=== PATIENT | male | born 1995 | race African-American/Black ===

== ENCOUNTER 2018-02-08 15:27 | Emergency (ER) | payer OTHER, SELFPAY ==
[2018-02-08 15:37] VITALS: BP 127/86; PULSE 72; RESP 14; TEMP 36.8; O2SAT 98; BMI 36.5
[2018-02-08 17:30] VITALS: BP 124/73; PULSE 58; RESP 16; O2SAT 98
--- NOTE | 2018-02-08 17:32 | ED.ABDPAIN ---
HPI - Abdominal Pain <RONAL Romano - Last Filed: 02/08/18 20:12> General Chief Complaint: Abdominal Pain Stated Complaint: Blood in stool, itchy/irritated/sore rectum Time Seen by Provider: 02/08/18 17:32 Source: patient Mode of arrival: ambulatory Limitations: no limitations History of Present Illness HPI narrative: 22-year-old healthy nonsmokier male here for complaint having pain to his left testicle area for the past couple of weeks. He denies any trauma to the area. He denies any penile discharge. He denies any urinary symptoms. He also complains having pain into his left ribcage/ left flank area also for the last couple weeks. He also states that he has had some blood-streaked stools and irritation to his rectal area for the same timeframe. He denies any abdominal pain. He denies any chest pain no shortness of breath. He states that he had a new sexual encounter approximately 3-4 weeks ago. No fevers no chills positive p.o. intake. He denies any trauma to the ribcage area. MD complaint: flank pain Related Data Previous Rx's Medication Instructions Recorded doxycycline hyclate 100 mg PO BID #14 tab 02/08/18 Allergies Allergy/AdvReac Type Severity Reaction Status Date / Time No Known Drug Allergies Allergy Verified 02/08/18 15:40 Review of Systems <RONAL Romano - Last Filed: 02/08/18 20:12> Constitutional Denies chills, Denies fever(s), Denies lethargy and Denies weakness Eyes Denies change in vision, Denies eye discharge, Denies irritation and Denies loss of vision ENT Ears, Nose, Mouth, and Throat: Denies change in voice, Denies neck pain and Denies sore throat Cardiovascular Denies chest pain, Denies irregular heart rhythm, Denies lightheadedness, Denies palpitations and Denies orthopnea Respiratory Comments: Left lateral ribcage pain Gastrointestinal Gastrointestinal: Denies abdominal pain, Denies change in bowel habits, Denies diarrhea, Denies nausea and Denies vomiting Genitourinary Denies hematuria, Denies flank pain, Denies urinary incontinence and Denies urinary urgency Musculoskeletal Denies neck pain Integumentary/Breasts Denies pruritus, Denies erythema, Denies rash and Denies wounds Neurologic Denies confusion, Denies loss of vision and Denies weakness Psychiatric Denies anxiety, Denies confusion, Denies depression, Denies homicidal ideation and Denies suicidal ideation Endocrine Denies palpitations Hematologic/Lymphatic Denies easy bruising Exam <RONAL Romano - Last Filed: 02/08/18 20:12> Initial Vital Signs Initial Vital Signs: Vital Signs Temperature 98.3 F 02/08/18 15:37 Pulse Rate 72 02/08/18 15:37 Respiratory Rate 14 02/08/18 15:37 Blood Pressure 127/86 02/08/18 15:37 Pulse Oximetry 98 02/08/18 15:37 Const General: cooperative and well developed Nutritional Appearance: well nourished Orientation: alert, awake, oriented x3 and not confused HENDC Mouth: oral mucosae normal and moist mucous membranes Eyes Conjunctivae: conjunctivae normal Sclera: sclerae normal Pupils: PERRL EOM: EOM intact bilaterally Chest Other: Tenderness with palpation to the left lateral ribcage Resp Effort & Inspection: normal respiratory effort, able to speak in complete sentences, no respiratory distress and no use of accessory muscles Auscultation: clear to auscultation bilaterally, no rales, no rhonchi and no wheezes Cardio Rate: regular rate Rhythm: regular rhythm Heart Sounds: no click, no gallops, no murmurs and no rubs Pulses: normal peripheral pulses GI Inspection: non-distended Palpation: soft, no hepatosplenomegaly, No guarding, No pulsatile mass and No tender Auscultation: normal bowel sounds General: No CVA tenderness Testes: normal, no epidiymal masses, epididymal tenderness, no masses, no testicular mass and testicular tenderness on the left Skin General: no rashes or lesions noted, No jaundice and No petechiae Neuro General: alert, oriented x3, gait normal and no focal motor deficits Speech: speech normal Extrem General: full ROM, no clubbing, cyanosis or edema, no pedal edema and no calf tenderness <Bart Alves DO - Last Filed: 02/09/18 05:43> Initial Vital Signs Initial Vital Signs: Vital Signs Temperature 98.3 F 02/08/18 15:37 Pulse Rate 72 02/08/18 15:37 Respiratory Rate 14 02/08/18 15:37 Blood Pressure 127/86 02/08/18 15:37 Pulse Oximetry 98 02/08/18 15:37 Course <RONAL Romano - Last Filed: 02/08/18 20:12> Orders Ordered: Discontinued Medications Ceftriaxone Sodium (Rocephin) 500 mg IM NOW ONE Stop: 02/08/18 19:44 Last Admin: 02/08/18 20:12 Dose: 500 mg Doxycycline Hyclate (Vibramycin) 100 mg PO NOW ONE Stop: 02/08/18 19:44 Last Admin: 02/08/18 20:12 Dose: 100 mg Lidocaine HCl (Xylocaine 1%) 2.1 ml INJ NOW ONE Stop: 02/08/18 19:44 Last Admin: 02/08/18 20:12 Dose: 2.1 ml Vital Signs - 8 hr 02/08/18 15:37 02/08/18 17:30 Temperature 98.3 F Pulse Rate 72 58 L Respiratory Rate 14 16 Blood Pressure 127/86 Blood Pressure [Left Arm] 124/73 Pulse Oximetry 98 98 <Bart Alves DO - Last Filed: 02/09/18 05:43> Orders Ordered: Discontinued Medications Ceftriaxone Sodium (Rocephin) 500 mg IM NOW ONE Stop: 02/08/18 19:44 Last Admin: 02/08/18 20:12 Dose: 500 mg Doxycycline Hyclate (Vibramycin) 100 mg PO NOW ONE Stop: 02/08/18 19:44 Last Admin: 02/08/18 20:12 Dose: 100 mg Lidocaine HCl (Xylocaine 1%) 2.1 ml INJ NOW ONE Stop: 02/08/18 19:44 Last Admin: 02/08/18 20:12 Dose: 2.1 ml Vital Signs - 8 hr 02/08/18 15:37 02/08/18 17:30 Temperature 98.3 F Pulse Rate 72 58 L Respiratory Rate 14 16 Blood Pressure 127/86 Blood Pressure [Left Arm] 124/73 Pulse Oximetry 98 98 MDM - Abdominal Pain <RONAL Romano - Last Filed: 02/08/18 20:12> Lab Data Result diagrams: 02/08/18 18:05 02/08/18 18:05 Lab Results 02/08/18 02/08/18 02/08/18 Range/Units 17:45 18:05 18:05 WBC 4.3 L (4.5-11.0) X10^3/uL RBC 4.97 (4.5-5.9) X10^6/uL Hgb 15.2 (13.5-17.5) g/dL Hct 44.8 (41-53) % MCV 90.1 (80-100) fL MCH 30.7 (26-34) PG MCHC 34.0 (30-36) % RDW 13.6 (11.6-14.8) % Plt Count 223 (150-400) X10^3/uL Neut % (Auto) 36.7 L (50-75) % Lymph % (Auto) 52.1 H (25-40) % Hayes % (Auto) 6.7 (3-14) % Eos % (Auto) 3.8 (2-4) % Baso % (Auto) 0.7 (0-2) % Neut # (Auto) 1600 L (3613-5352) /uL Sodium 144 (137-145) mmol/L Potassium 4.4 (3.4-5.1) mmol/L Chloride 103 (98-107) mmol/L Carbon Dioxide 30 (22-32) mmol/L BUN 16 (9-20) mg/dL Creatinine 1.10 (0.66-1.25) mg/dL Estimated GFR > 60.0 (>60) mL/min BUN/Creatinine Ratio 14.5 (6-22) Glucose 83 (70-100) mg/dL Calcium 9.2 (8.4-10.2) mg/dL Total Bilirubin 0.6 (0.2-1.3) mg/dL AST 50 (17-59) IU/L ALT 35 (21-72) IU/L Alkaline Phosphatase 114 (38-126) U/L Total Protein 8.0 (6.3-8.2) g/dL Albumin 4.7 (3.5-5.0) g/dL Globulin 3.3 (1.7-4.1) g/dL Albumin/Globulin Ratio 1.4 (1.0-2.8) Urine RBC 1-5/hpf (0-5/HPF) Urine WBC 0-1/hpf (0-5/HPF) Ur Squamous Epith Cells 0-1 /hpf Urine Bacteria Few (2-10) H (None) Ur Culture Indicated? Cult not indicated Micro UA Comment Not Reportable Point of care testing: Urine Dip Bedside Urine Glucose Negative Bedside Urine Bilirubin - Negative Bedside Urine Ketone +/- 5 Urine Specific [place] 1.025 Bedside Urine Occult Blood +/- Bedside Urine pH 6.0 Bedside Urine Protein - Negative Bedside Urine Urobilinogen - Negative Bedside Urine Nitrite - Negative Bedside Urine Leukocytes - Negative Esterase Imaging Data Scrotum ultrasound: Radiologist's impression: [address] [address] Ultrasound Report Signed Patient: Raul Bhakta MR#: [id number] : 1995 Acct:[id number] Age/Sex: 22 / M Date of Service: 02/08/18 Loc: ED Accession Number: [id number] Procedure: US scrotum Ordering Provider: Pedrito Conway PROCEDURE: US SCROTUM INDICATIONS: LEFT TESTICULAR PAIN TECHNIQUE: Real-time scanning was performed of the scrotum and testicles, with image documentation. Color and pulse Doppler interrogation was performed of both testicles. COMPARISON: None. FINDINGS: Right: Testicle is normal in size at 4.9 x 2.5 x 3.2 cm, and homogenous in echotexture. Epididymis is normal in overall size and morphology. No hydrocele or varicoceles. Overlying scrotal skin is normal in thickness. Left: Testicle is normal in size at 4.7 x 2.2 x 2.9 cm, and homogeneous in echotexture. Epididymis is normal in overall size and morphology. No hydrocele or varicoceles. Overlying scrotal skin is normal in thickness. Doppler: Color and pulse Doppler demonstrate normal and symmetric arterial flow in both testicles. IMPRESSION: Normal testicular sonogram without evidence of testicular torsion. Please note that ultrasound cannot exclude intermittent testicular torsion. Dictated by: Luisa Chery MD, PhD on 02/08/2018 at 18:48 Approved by: Luisa Chery MD, PhD on 02/08/2018 at 18:49 [facility] Narrative Medical decision making narrative: Pain into the lateral ribcage that is reproducible with palpation appears to be chest wall pain radiating into the back area he has no CVA tenderness. Urinalysis was negative for urinary tract infection or red blood cells. Ultrasound of the testicles was obtained was negative for any acute findings. CBC and Chem panel were obtained were unremarkable. Patient's vital signs were normal. Patient had no abdominal tenderness. He does report having a recent new sexual encounter approximately 1 month ago will treat for epididymitis with Rocephin and doxycycline. He is encouraged to follow up with his primary care provider in 1 week for re-evaluation. For if any worsening symptoms return to the emergency room. GC Chlamydia swab was obtained and is pending. Light duty for 1 week with no heavy lifting to rest his chest wall area. [id number] ibuprofen as needed for any discomfort. His Hemoccult was negative. Will treat for hemorrhoid with zinc oxide to see if it helps his symptoms. <Bart Alves, DO - Last Filed: 02/09/18 05:43> Lab Data Lab Results 02/08/18 02/08/18 02/08/18 Range/Units 17:45 18:05 18:05 WBC 4.3 L (4.5-11.0) X10^3/uL RBC 4.97 (4.5-5.9) X10^6/uL Hgb 15.2 (13.5-17.5) g/dL Hct 44.8 (41-53) % MCV 90.1 (80-100) fL MCH 30.7 (26-34) PG MCHC 34.0 (30-36) % RDW 13.6 (11.6-14.8) % Plt Count 223 (150-400) X10^3/uL Neut % (Auto) 36.7 L (50-75) % Lymph % (Auto) 52.1 H (25-40) % Hayes % (Auto) 6.7 (3-14) % Eos % (Auto) 3.8 (2-4) % Baso % (Auto) 0.7 (0-2) % Neut # (Auto) 1600 L (3188-0486) /uL Sodium 144 (137-145) mmol/L Potassium 4.4 (3.4-5.1) mmol/L Chloride 103 (98-107) mmol/L Carbon Dioxide 30 (22-32) mmol/L BUN 16 (9-20) mg/dL Creatinine 1.10 (0.66-1.25) mg/dL Estimated GFR > 60.0 (>60) mL/min BUN/Creatinine Ratio 14.5 (6-22) Glucose 83 (70-100) mg/dL Calcium 9.2 (8.4-10.2) mg/dL Total Bilirubin 0.6 (0.2-1.3) mg/dL AST 50 (17-59) IU/L ALT 35 (21-72) IU/L Alkaline Phosphatase 114 (38-126) U/L Total Protein 8.0 (6.3-8.2) g/dL Albumin 4.7 (3.5-5.0) g/dL Globulin 3.3 (1.7-4.1) g/dL Albumin/Globulin Ratio 1.4 (1.0-2.8) Urine RBC 1-5/hpf (0-5/HPF) Urine WBC 0-1/hpf (0-5/HPF) Ur Squamous Epith Cells 0-1 /hpf Urine Bacteria Few (2-10) H (None) Ur Culture Indicated? Cult not indicated Micro UA Comment Not Reportable Point of care testing: Urine Dip Bedside Urine Glucose Negative Bedside Urine Bilirubin - Negative Bedside Urine Ketone +/- 5 Urine Specific [place] 1.025 Bedside Urine Occult Blood +/- Bedside Urine pH 6.0 Bedside Urine Protein - Negative Bedside Urine Urobilinogen - Negative Bedside Urine Nitrite - Negative Bedside Urine Leukocytes - Negative Esterase Discharge Plan Departure Patient Disposition: Home Clinical Impression: Hemorrhoid, Left testicular pain, Acute chest wall pain Discharge Date/Time: 02/08/18 20:22 Interventions: ED Discharge Assessment Last Done: 02/08/18 20:21 Instructions: DI for Testicular Pain Activity Restrictions/Additional Instructions: Laboratory results today were unremarkable. Ultrasound of the left testicle was negative for any acute findings. You are prescribed antibiotics to treat for infection called epididymitis use as directed. Pain into your left side presents as chest wall muscle skeletal pain rest area strenuous activities that cause pain to the area. Use zinc oxide cream IE beudreauxs butt paste to treat the anal area as this will help for any hemorrhoids or abrasions to the area. Use [id number] ibuprofen as needed for any discomfort follow up with primary care provider in 1 week for re-evaluation. Samples for gonorrhea and chlamydia were obtained and are pending. For any worsening symptoms return to the emergency room. Prescriptions: New doxycycline hyclate 100 mg tablet 100 mg PO BID Qty: 14 RF: 0 Referrals: [facility] [Provider Group] <Bart Alves DO - Last Filed: 02/09/18 05:43> Cosign ED Attending Waltature Attestation: I was immediately available in the department for consultation. Documentation has been reviewed. I agree with assessment and plan.
--- NOTE | 2018-02-08 17:42 | DI.US.S_ITS ---
PROCEDURE: US SCROTUM INDICATIONS: LEFT TESTICULAR PAIN TECHNIQUE: Real-time scanning was performed of the scrotum and testicles, with image documentation. Color and pulse Doppler interrogation was performed of both testicles. COMPARISON: None. FINDINGS: Right: Testicle is normal in size at 4.9 x 2.5 x 3.2 cm, and homogenous in echotexture. Epididymis is normal in overall size and morphology. No hydrocele or varicoceles. Overlying scrotal skin is normal in thickness. Left: Testicle is normal in size at 4.7 x 2.2 x 2.9 cm, and homogeneous in echotexture. Epididymis is normal in overall size and morphology. No hydrocele or varicoceles. Overlying scrotal skin is normal in thickness. Doppler: Color and pulse Doppler demonstrate normal and symmetric arterial flow in both testicles. IMPRESSION: Normal testicular sonogram without evidence of testicular torsion. Please note that ultrasound cannot exclude intermittent testicular torsion. Dictated by: Luisa Chery MD, PhD on 02/08/2018 at 18:48 Approved by: Luisa Chery MD, PhD on 02/08/2018 at 18:49
[2018-02-08 18:15] LABS: Add Manual Diff / Slide Review NO; Basophils Percent Auto 0.7 % (0-2); Eosinophils Percent Auto 3.8 % (2-4); Hematocrit 44.8 % (41-53); Hemoglobin 15.2 g/dL (13.5-17.5); Lymphocytes Percent Auto 52.1 % (25-40); Mean Corpuscular Hemoglobin 30.7 PG (26-34); Mean Corpuscular Volume 90.1 fL (80-100); Monocytes Percent Auto 6.7 % (3-14); Neutrophils Absolute Auto 1600 /uL (3000-5900); Neutrophils Percent Auto 36.7 % (50-75); Platelet Count 223 X10^3/uL (150-400); Red Blood Cell Count 4.97 X10^6/uL (4.5-5.9); Red Cell Distribution Width 13.6 % (11.6-14.8); White Blood Cell Count 4.3 X10^3/uL (4.5-11.0)
[2018-02-08 18:24] LABS: Alanine Aminotransferase 35 IU/L (21-72); Albumin 4.7 g/dL (3.5-5.0); Albumin Globulin Ratio 1.4 (1.0-2.8); Alkaline Phosphatase 114 U/L (38-126); Aspartate Aminotransferase 50 IU/L (17-59); BUN Creatinine Ratio 14.5 (6-22); Bilirubin Total 0.6 mg/dL (0.2-1.3); Blood Urea Nitrogen 16 mg/dL (9-20); Calcium 9.2 mg/dL (8.4-10.2); Carbon Dioxide 30 mmol/L (22-32); Chloride 103 mmol/L (98-107); Estimated Glomerular Filt Rate > 60.0 mL/min (>60); Globulin 3.3 g/dL (1.7-4.1); Glucose 83 mg/dL (70-100); HEMOLYSIS 75 (0-50); Potassium 4.4 mmol/L (3.4-5.1); Sodium 144 mmol/L (137-145)
[2018-02-08 18:41] LABS: Bacteria Urine Few (2-10); Culture Indicated Urine Cult Not Indicated; RBC Urine 1-5/HPF (0-5/HPF); Squamous Epithelial Cell Urine 0-1 /HPF; WBC Urine 0-1/HPF (0-5/HPF)
--- NOTE | 2018-02-08 19:49 | ED_ITS ---
HPI - Abdominal Pain <RONAL Romano - Last Filed: 02/08/18 20:12> General Chief Complaint: Abdominal Pain Stated Complaint: Blood in stool, itchy/irritated/sore rectum Time Seen by Provider: 02/08/18 17:32 Source: patient Mode of arrival: ambulatory Limitations: no limitations History of Present Illness HPI narrative: 22-year-old healthy nonsmokier male here for complaint having pain to his left testicle area for the past couple of weeks. He denies any trauma to the area. He denies any penile discharge. He denies any urinary symptoms. He also complains having pain into his left ribcage/ left flank area also for the last couple weeks. He also states that he has had some blood- streaked stools and irritation to his rectal area for the same timeframe. He denies any abdominal pain. He denies any chest pain no shortness of breath. He states that he had a new sexual encounter approximately 3-4 weeks ago. No fevers no chills positive p.o. intake. He denies any trauma to the ribcage area. MD complaint: flank pain Related Data Previous Rx's Medication Instructions Recorded doxycycline hyclate 100 mg PO BID #14 tab 02/08/18 Allergies Allergy/AdvReac Type Severity Reaction Status Date / Time No Known Drug Allergies Allergy Verified 02/08/18 15:40 Review of Systems <RONAL Romano - Last Filed: 02/08/18 20:12> Constitutional Denies chills, Denies fever(s), Denies lethargy and Denies weakness Eyes Denies change in vision, Denies eye discharge, Denies irritation and Denies loss of vision ENT Ears, Nose, Mouth, and Throat: Denies change in voice, Denies neck pain and Denies sore throat Cardiovascular Denies chest pain, Denies irregular heart rhythm, Denies lightheadedness, Denies palpitations and Denies orthopnea Respiratory Comments: Left lateral ribcage pain Gastrointestinal Gastrointestinal: Denies abdominal pain, Denies change in bowel habits, Denies diarrhea, Denies nausea and Denies vomiting Genitourinary Denies hematuria, Denies flank pain, Denies urinary incontinence and Denies urinary urgency Musculoskeletal Denies neck pain Integumentary/Breasts Denies pruritus, Denies erythema, Denies rash and Denies wounds Neurologic Denies confusion, Denies loss of vision and Denies weakness Psychiatric Denies anxiety, Denies confusion, Denies depression, Denies homicidal ideation and Denies suicidal ideation Endocrine Denies palpitations Hematologic/Lymphatic Denies easy bruising Exam <RONAL Romaon - Last Filed: 02/08/18 20:12> Initial Vital Signs Initial Vital Signs: Vital Signs Temperature 98.3 F 02/08/18 15:37 Pulse Rate 72 02/08/18 15:37 Respiratory Rate 14 02/08/18 15:37 Blood Pressure 127/86 02/08/18 15:37 Pulse Oximetry 98 02/08/18 15:37 Const General: cooperative and well developed Nutritional Appearance: well nourished Orientation: alert, awake, oriented x3 and not confused HENTN Mouth: oral mucosae normal and moist mucous membranes Eyes Conjunctivae: conjunctivae normal Sclera: sclerae normal Pupils: PERRL EOM: EOM intact bilaterally Chest Other: Tenderness with palpation to the left lateral ribcage Resp Effort & Inspection: normal respiratory effort, able to speak in complete sentences, no respiratory distress and no use of accessory muscles Auscultation: clear to auscultation bilaterally, no rales, no rhonchi and no wheezes Cardio Rate: regular rate Rhythm: regular rhythm Heart Sounds: no click, no gallops, no murmurs and no rubs Pulses: normal peripheral pulses GI Inspection: non-distended Palpation: soft, no hepatosplenomegaly, No guarding, No pulsatile mass and No tender Auscultation: normal bowel sounds General: No CVA tenderness Testes: normal, no epidiymal masses, epididymal tenderness, no masses, no testicular mass and testicular tenderness on the left Skin General: no rashes or lesions noted, No jaundice and No petechiae Neuro General: alert, oriented x3, gait normal and no focal motor deficits Speech: speech normal Extrem General: full ROM, no clubbing, cyanosis or edema, no pedal edema and no calf tenderness <Bart Alves DO - Last Filed: 02/09/18 05:43> Initial Vital Signs Initial Vital Signs: Vital Signs Temperature 98.3 F 02/08/18 15:37 Pulse Rate 72 02/08/18 15:37 Respiratory Rate 14 02/08/18 15:37 Blood Pressure 127/86 02/08/18 15:37 Pulse Oximetry 98 02/08/18 15:37 Course <RONAL Romano - Last Filed: 02/08/18 20:12> Orders Ordered: Discontinued Medications Ceftriaxone Sodium (Rocephin) 500 mg IM NOW ONE Stop: 02/08/18 19:44 Last Admin: 02/08/18 20:12 Dose: 500 mg Doxycycline Hyclate (Vibramycin) 100 mg PO NOW ONE Stop: 02/08/18 19:44 Last Admin: 02/08/18 20:12 Dose: 100 mg Lidocaine HCl (Xylocaine 1%) 2.1 ml INJ NOW ONE Stop: 02/08/18 19:44 Last Admin: 02/08/18 20:12 Dose: 2.1 ml Vital Signs - 8 hr 02/08/18 15:37 02/08/18 17:30 Temperature 98.3 F Pulse Rate 72 58 L Respiratory Rate 14 16 Blood Pressure 127/86 Blood Pressure [Left Arm] 124/73 Pulse Oximetry 98 98 <Bart Alves DO - Last Filed: 02/09/18 05:43> Orders Ordered: Discontinued Medications Ceftriaxone Sodium (Rocephin) 500 mg IM NOW ONE Stop: 02/08/18 19:44 Last Admin: 02/08/18 20:12 Dose: 500 mg Doxycycline Hyclate (Vibramycin) 100 mg PO NOW ONE Stop: 02/08/18 19:44 Last Admin: 02/08/18 20:12 Dose: 100 mg Lidocaine HCl (Xylocaine 1%) 2.1 ml INJ NOW ONE Stop: 02/08/18 19:44 Last Admin: 02/08/18 20:12 Dose: 2.1 ml Vital Signs - 8 hr 02/08/18 15:37 02/08/18 17:30 Temperature 98.3 F Pulse Rate 72 58 L Respiratory Rate 14 16 Blood Pressure 127/86 Blood Pressure [Left Arm] 124/73 Pulse Oximetry 98 98 MDM - Abdominal Pain <RONAL Romano - Last Filed: 02/08/18 20:12> Lab Data Result diagrams: 02/08/18 18:05 02/08/18 18:05 Lab Results 02/08/18 02/08/18 02/08/18 Range/Units 17:45 18:05 18:05 WBC 4.3 L (4.5-11.0) X10^3/uL RBC 4.97 (4.5-5.9) X10^6/uL Hgb 15.2 (13.5-17.5) g/dL Hct 44.8 (41-53) % MCV 90.1 (80-100) fL MCH 30.7 (26-34) PG MCHC 34.0 (30-36) % RDW 13.6 (11.6-14.8) % Plt Count 223 (150-400) X10^3/uL Neut % (Auto) 36.7 L (50-75) % Lymph % (Auto) 52.1 H (25-40) % [place] % (Auto) 6.7 (3-14) % Eos % (Auto) 3.8 (2-4) % Baso % (Auto) 0.7 (0-2) % Neut # (Auto) 1600 L (1709-3652) /uL Sodium 144 (137-145) mmol/L Potassium 4.4 (3.4-5.1) mmol/L Chloride 103 (98-107) mmol/L Carbon Dioxide 30 (22-32) mmol/L BUN 16 (9-20) mg/dL Creatinine 1.10 (0.66-1.25) mg/dL Estimated GFR > 60.0 (>60) mL/min BUN/Creatinine Ratio 14.5 (6-22) Glucose 83 (70-100) mg/dL Calcium 9.2 (8.4-10.2) mg/dL Total Bilirubin 0.6 (0.2-1.3) mg/dL AST 50 (17-59) IU/L ALT 35 (21-72) IU/L Alkaline Phosphatase 114 (38-126) U/L Total Protein 8.0 (6.3-8.2) g/dL Albumin 4.7 (3.5-5.0) g/dL Globulin 3.3 (1.7-4.1) g/dL Albumin/Globulin Ratio 1.4 (1.0-2.8) Urine RBC 1-5/hpf (0-5/HPF) Urine WBC 0-1/hpf (0-5/HPF) Ur Squamous Epith Cells 0-1 /hpf Urine Bacteria Few (2-10) H (None) Ur Culture Indicated? Cult not indicated Micro UA Comment Not Reportable Point of care testing: Urine Dip Bedside Urine Glucose Negative Bedside Urine Bilirubin - Negative Bedside Urine Ketone +/- 5 Urine Specific [place] 1.025 Bedside Urine Occult Blood +/- Bedside Urine pH 6.0 Bedside Urine Protein - Negative Bedside Urine Urobilinogen - Negative Bedside Urine Nitrite - Negative Bedside Urine Leukocytes - Negative Esterase Imaging Data Scrotum ultrasound: Radiologist's impression: [address] [address] Ultrasound Report Signed Patient: Raul Bhakta MR#: [id number] : 1995 Acct:[id number] Age/Sex: 22 / M Date of Service: 02/08/18 Loc: ED Accession Number: [id number] Procedure: US scrotum Ordering Provider: Pedrito Conway PROCEDURE: US SCROTUM INDICATIONS: LEFT TESTICULAR PAIN TECHNIQUE: Real-time scanning was performed of the scrotum and testicles, with image documentation. Color and pulse Doppler interrogation was performed of both testicles. COMPARISON: None. FINDINGS: Right: Testicle is normal in size at 4.9 x 2.5 x 3.2 cm, and homogenous in echotexture. Epididymis is normal in overall size and morphology. No hydrocele or varicoceles. Overlying scrotal skin is normal in thickness. Left: Testicle is normal in size at 4.7 x 2.2 x 2.9 cm, and homogeneous in echotexture. Epididymis is normal in overall size and morphology. No hydrocele or varicoceles. Overlying scrotal skin is normal in thickness. Doppler: Color and pulse Doppler demonstrate normal and symmetric arterial flow in both testicles. IMPRESSION: Normal testicular sonogram without evidence of testicular torsion. Please note that ultrasound cannot exclude intermittent testicular torsion. Dictated by: Luisa Chery MD, PhD on 02/08/2018 at 18:48 Approved by: Luisa Chery MD, PhD on 02/08/2018 at 18:49 [facility] Narrative Medical decision making narrative: Pain into the lateral ribcage that is reproducible with palpation appears to be chest wall pain radiating into the back area he has no CVA tenderness. Urinalysis was negative for urinary tract infection or red blood cells. Ultrasound of the testicles was obtained was negative for any acute findings. CBC and Chem panel were obtained were unremarkable. Patient's vital signs were normal. Patient had no abdominal tenderness. He does report having a recent new sexual encounter approximately 1 month ago will treat for epididymitis with Rocephin and doxycycline. He is encouraged to follow up with his primary care provider in 1 week for re- evaluation. For if any worsening symptoms return to the emergency room. GC Chlamydia swab was obtained and is pending. Light duty for 1 week with no heavy lifting to rest his chest wall area. [id number] ibuprofen as needed for any discomfort. His Hemoccult was negative. Will treat for hemorrhoid with zinc oxide to see if it helps his symptoms. <Bart Alves, DO - Last Filed: 02/09/18 05:43> Lab Data Lab Results 02/08/18 02/08/18 02/08/18 Range/Units 17:45 18:05 18:05 WBC 4.3 L (4.5-11.0) X10^3/uL RBC 4.97 (4.5-5.9) X10^6/uL Hgb 15.2 (13.5-17.5) g/dL Hct 44.8 (41-53) % MCV 90.1 (80-100) fL MCH 30.7 (26-34) PG MCHC 34.0 (30-36) % RDW 13.6 (11.6-14.8) % Plt Count 223 (150-400) X10^3/uL Neut % (Auto) 36.7 L (50-75) % Lymph % (Auto) 52.1 H (25-40) % [place] % (Auto) 6.7 (3-14) % Eos % (Auto) 3.8 (2-4) % Baso % (Auto) 0.7 (0-2) % Neut # (Auto) 1600 L (6075-2120) /uL Sodium 144 (137-145) mmol/L Potassium 4.4 (3.4-5.1) mmol/L Chloride 103 (98-107) mmol/L Carbon Dioxide 30 (22-32) mmol/L BUN 16 (9-20) mg/dL Creatinine 1.10 (0.66-1.25) mg/dL Estimated GFR > 60.0 (>60) mL/min BUN/Creatinine Ratio 14.5 (6-22) Glucose 83 (70-100) mg/dL Calcium 9.2 (8.4-10.2) mg/dL Total Bilirubin 0.6 (0.2-1.3) mg/dL AST 50 (17-59) IU/L ALT 35 (21-72) IU/L Alkaline Phosphatase 114 (38-126) U/L Total Protein 8.0 (6.3-8.2) g/dL Albumin 4.7 (3.5-5.0) g/dL Globulin 3.3 (1.7-4.1) g/dL Albumin/Globulin Ratio 1.4 (1.0-2.8) Urine RBC 1-5/hpf (0-5/HPF) Urine WBC 0-1/hpf (0-5/HPF) Ur Squamous Epith Cells 0-1 /hpf Urine Bacteria Few (2-10) H (None) Ur Culture Indicated? Cult not indicated Micro UA Comment Not Reportable Point of care testing: Urine Dip Bedside Urine Glucose Negative Bedside Urine Bilirubin - Negative Bedside Urine Ketone +/- 5 Urine Specific [place] 1.025 Bedside Urine Occult Blood +/- Bedside Urine pH 6.0 Bedside Urine Protein - Negative Bedside Urine Urobilinogen - Negative Bedside Urine Nitrite - Negative Bedside Urine Leukocytes - Negative Esterase Discharge Plan Departure Patient Disposition: Home Clinical Impression: Hemorrhoid, Left testicular pain, Acute chest wall pain Discharge Date/Time: 02/08/18 20:22 Interventions: ED Discharge Assessment Last Done: 02/08/18 20:21 Instructions: DI for Testicular Pain Activity Restrictions/Additional Instructions: Laboratory results today were unremarkable. Ultrasound of the left testicle was negative for any acute findings. You are prescribed antibiotics to treat for infection called epididymitis use as directed. Pain into your left side presents as chest wall muscle skeletal pain rest area strenuous activities that cause pain to the area. Use zinc oxide cream IE beudreauxs butt paste to treat the anal area as this will help for any hemorrhoids or abrasions to the area. Use [id number] ibuprofen as needed for any discomfort follow up with primary care provider in 1 week for re-evaluation. Samples for gonorrhea and chlamydia were obtained and are pending. For any worsening symptoms return to the emergency room. Prescriptions: New doxycycline hyclate 100 mg tablet 100 mg PO BID Qty: 14 RF: 0 Referrals: [facility] [Provider Group] <Bart Alves DO - Last Filed: 02/09/18 05:43> Cosign ED Attending Waltature Attestation: I was immediately available in the department for consultation. Documentation has been reviewed. I agree with assessment and plan.
[2018-02-08 20:11] VITALS: BP 141/87; PULSE 56; RESP 14; O2SAT 100
[2018-02-08] MEDS: LIDOCAINE 1% 20 ML INJ 2.1 ML INJ (20:12)
[2018-02-08] MEDS: DOXYCYCLINE HYCLATE 100 MG TABLET PO (20:12)
[2018-02-08] MEDS: cefTRIAXone 1,000 MG VIAL 500 MG IM (20:12)
== END 2018-02-08 20:22 | disposition home or self-care (01) ==
PROVIDERS: Emergency Provider Nurse Practitioner Family
DX: K64.9 Unspecified hemorrhoids (principal); N50.812 Left testicular pain; R07.89 Other chest pain
CPT/HCPCS: 36591; 76870; 80053; 81003; 81015; 85025; 87491; 87591; 96372; 99282; 99284; J0696